=== PATIENT | female | born 1960 | race Caucasian/White ===

== ENCOUNTER 2017-05-24 20:58 | Observation (INO) ==
[2017-05-24] MEDS ORDERED: 0.9 % Sodium Chloride 1,000 ML IVC ONE ×2 (21:42→23:23)
[2017-05-24] MEDS ORDERED: Ondansetron 4 MG/2 ML VIAL IVP ONE (21:42)
[2017-05-24] MEDS ORDERED: Ipratropium/Albuterol Neb 3 ML IH ONE (21:46)
--- NOTE | 2017-05-24 21:51 | Emergency Department Note ---
START Narrative - START START: I examined this patient and my medical decision-making was reviewed with the Resident Physician. I agree with the documented findings, disposition and treatment plan as described except to the extent set forth below. 56yo F here to ER for second visit this week. c/o sob, fevers, not feeling well , dizziness. seen on sunday for similar but wasn't having as much sob and fever. workup at that time was negative. head ct was neg. labs ok. returns tonight with fever up to [address] and sob. will do CT chest today to eval for possible PE but will also give us any insight to any infection in the lungs. will check UA as well.
--- NOTE | 2017-05-24 21:54 | Emergency Department Note ---
Disposition Clinical Impression: UTI (urinary tract infection) Qualifiers: Urinary tract infection type: acute cystitis Hematuria presence: without hematuria Qualified Code(s): N30.00 - Acute cystitis without hematuria Sepsis Qualifiers: Sepsis type: sepsis due to unspecified organism Qualified Code(s): A41.9 - Sepsis, unspecified organism Disposition: Admitted As Inpatient Condition: Fair Time of Disposition: 23:34 General Adult HPI - General Chief complaint: ED Shortness of Breath/Dyspnea Stated complaint: freddy Source: patient Limitations: no limitations Nursing Notes Reviewed: Yes Vital Signs Reviewed: Yes - History of Present Illness HPI Narrative: 56-year-old female who presents to the emergency department with complaint of ongoing dizziness for the past 3 days on standing. Patient states that she also feels short of breath when she stands up. Patient does report increased urinary frequency, but denies urgency and dysuria. Patient states that she is very concerned as she does not feel well. Pain Scale: 0 - Related Data Home Medications Medication Instructions Recorded Confirmed No Known Home Drugs 05/24/17 05/24/17 Allergies Allergy/AdvReac Type Severity Reaction Status Date / Time No Known Allergies Allergy Verified 05/24/17 21:16 All systems ED: reviewed and negative except as stated. Review of Systems: As Per HPI Constitutional: Reports: fever, chills Eyes: Denies: eye pain ENT ED: Denies: ear pain, throat pain Cardiovascular: Denies: chest pain, palpitations Respiratory: Denies: cough, dyspnea, wheezes Gastrointestinal: Reports: nausea. Denies: abdominal pain, vomiting Genitourinary: Reports: frequency. Denies: urgency, dysuria Musculoskeletal: Denies: back pain, neck pain Integumentary: Denies: rash, abrasion Neurological: Reports: vertigo. Denies: headache Endocrine: Reports: fatigue Past Medical History - Past Medical History Medical history: Reports: cancer, thyroid disease, other Psychiatric history: Reports: no psych history - Social History Smoking Status: Former smoker Smokeless Tobacco Status: No Alcohol use: Reports: none Drug use: Reports: none Physical Exam General: Well Appearing, in no acute distress Head: autraumatic, EOMI, no conjuncitval pallor, no scleral icterus, Mouth: oral mucous membranes moist Neck: neck soft, trachea midline, no meningismus Chest:: Equal chest wall rise Lungs: Mild diffuse wheezes, no respiratory distress Heart: normal heart sounds, normal rate and rhythm, Abdomen: soft, non-tender, no rigidity, no guarding, no rebdound tenderness Lower Extremities: no pedal edema, calves non-tender Integumentary: Skin warm, dry, and intact, no rashes Neuro: Alert Psych: flat affect, normal mood Back: No CVA tenderness - General Limitations: no limitations General appearance: alert Course Course Narrative: 48-year-old female presents to the emergency department with presyncope and shortness of breath. Patient does have distant history of malignancy, and she has been bedridden for the last 3 weeks. We are obtaining an EKG, troponin, BNP , CTA of the chest to rule out PE. We are also obtaining a urinalysis. Patient initially was febrile but not tachycardic. Patient was given 3 duo nebs as she has some wheezes on her lung exam. She was also provided a gram of Tylenol for fever. She was administered 1 L normal saline. Patient had a new leukocytosis of 13.9 which had doubled from a CBC that was obtained a few days ago. Patient at that time met sepsis criteria. We obtained blood cultures, a lactate. We then gave the patient another liter of fluids here in the emergency department. Patient remained febrile and started developing Rigors. Urinalysis revealed an infection. We gave the patient a gram of rocephin here in the emergency department. We also gave the patient Toradol as a repeat temperature was 101. Patient was admitted to the hospital as she met sepsis criteria with her urinary tract infection, fever, new leukocytosis. Hospital agreed to accept admission. Patient is hemodynamically stable at time of discharge. Vital Signs Temperature 101.7 F H 05/24/17 21:16 Pulse Rate 88 05/24/17 21:16 Respiratory Rate 22 05/24/17 21:16 Blood Pressure 122/75 05/24/17 21:16 O2 Sat by Pulse Oximetry 95 05/24/17 21:16 Temperature 101 F H 05/25/17 00:10 Pulse Rate 90 05/24/17 23:40 Respiratory Rate 18 05/24/17 23:40 Blood Pressure 143/66 05/24/17 22:52 O2 Sat by Pulse Oximetry 95 05/24/17 23:40 Oxygen Delivery Oxygen Delivery Room Air Chest CTA 05/24/17 21:45 IMPRESSION: No findings to suggest pulmonary embolus. No acute abnormality. D/ / Saulo Nance / Saulo Nance Interpreting Provider: Saulo Nance Vital Signs Temperature 101.7 F H 05/24/17 21:16 Pulse Rate 88 05/24/17 21:16 Respiratory Rate 22 05/24/17 21:16 Blood Pressure 122/75 05/24/17 21:16 O2 Sat by Pulse Oximetry 95 05/24/17 21:16 Temperature 101 F H 05/25/17 00:10 Pulse Rate 90 05/24/17 23:40 Respiratory Rate 18 05/24/17 23:40 Blood Pressure 143/66 05/24/17 22:52 O2 Sat by Pulse Oximetry 95 05/24/17 23:40 Oxygen Delivery Oxygen Delivery Room Air Medical Decision Making - Medical Records Medical records reviewed: Yes I reviewed the patient's medical records. - Lab Data Lab results reviewed: Yes I reviewed the patient's lab results. Result diagrams: 05/24/17 22:25 05/24/17 22:25 Lab Results 05/24/17 05/24/17 05/24/17 Range/Units 21:49 22:25 22:25 WBC 13.9 H D (4.3-11.1) K/mcL RBC 4.99 H (3.82-4.97) M/mcL Hgb 14.1 (11.5-15.4) g/dL Hct 43.8 (35.3-44.9) % MCV 87.8 (83.0-100.0) fL MCH 28.3 (28.0-33.3) pg MCHC 32.2 (31.6-35.5) g/dL RDW 14.2 (11.5-14.5) % Plt Count 383 (140-400) K/mcL MPV 9.2 L (9.4-12.4) fL Immature Gran % 0.5 (0-4) % Seg Neutrophils % 20.3 % Lymphocytes % 74.8 % Monocytes % 2.9 % Eosinophils % 0.2 % Basophils % 1.3 % Neutrophils # 2.8 (1.6-8.9) K/mcL Lymphocytes # 10.4 H (0.6-4.6) K/mcL Monocytes # 0.4 (0.0-1.3) K/mcL Eosinophils # 0.0 (0.0-0.6) K/mcL Basophils # 0.2 (0.0-0.2) K/mcL Nucleated RBCs/100 WBC 0.1 H (0) /100 WBC Sodium 138 (136-145) mEq/L Potassium 3.4 L (3.5-4.5) mEq/L Chloride 103 (98-109) mEq/L Carbon Dioxide 26 (19-29) mEq/L BUN 13 (7-20) mg/dL Creatinine 0.81 (0.57-1.11) mg/dL Est GFR ( Amer) > 60 (> 60) Est GFR (Non-Af Amer) > 60 (> 60) BUN/Creatinine Ratio 16 (6-26) Glucose 121 H (70-99) mg/dL Calculated Osmolality 287 (280-300) Calcium 9.0 (8.6-10.8) mg/dL Total Bilirubin 0.4 (0.2-1.2) mg/dL AST 60 H (5-34) Units/L ALT 56 H (0-55) Units/L Alkaline Phosphatase 86 (38-126) Units/L Troponin I (0-0.03) ng/mL B-Natriuretic Peptide (0-100) pg/mL Serum Total Protein 7.0 (6.0-8.3) g/dL Albumin 3.1 L (3.5-5.0) g/dL Globulin 3.9 H (2.4-3.5) g/dL Albumin/Globulin Ratio 0.8 L (1.1-2.2) TSH 2.979 (0.350-4.840) mcIU/mL Urine Color Dark Yellow (Yellow) Urine Clarity Cloudy A (Clear) Urine pH 6.0 (5.0-8.0) pH Units Ur Specific [place] > 1.030 H (1.010-1.025) Urine Protein 30 H (Neg-Trace) mg/dL Urine Glucose (UA) Normal (Normal) mg/dL Urine Ketones Trace H (Negative) mg/dL Urine Blood Negative (Negative) Urine Nitrite Negative (Negative) Urine Bilirubin Small H (Negative) Urine Urobilinogen Normal (Normal) mg/dL Ur Leukocyte Esterase Moderate H (Negative) Urine Microscopic RBC 0-3 (0-3) per hpf Urine Microscopic WBC 50-100 H (0-3) per hpf Ur Squamous Epith Cells Many H (None-Few) per lpf Calcium Oxalate Crystal Present Urine Bacteria Moderate H (None-Few) per hpf Hyaline Casts None Seen (None-Few) per lpf Ur Culture Indicated? YES A (NO) 05/24/17 05/24/17 Range/Units 22:25 22:25 WBC (4.3-11.1) K/mcL RBC (3.82-4.97) M/mcL Hgb (11.5-15.4) g/dL Hct (35.3-44.9) % MCV (83.0-100.0) fL MCH (28.0-33.3) pg MCHC (31.6-35.5) g/dL RDW (11.5-14.5) % Plt Count (140-400) K/mcL MPV (9.4-12.4) fL Immature Gran % (0-4) % Seg Neutrophils % % Lymphocytes % % Monocytes % % Eosinophils % % Basophils % % Neutrophils # (1.6-8.9) K/mcL Lymphocytes # (0.6-4.6) K/mcL Monocytes # (0.0-1.3) K/mcL Eosinophils # (0.0-0.6) K/mcL Basophils # (0.0-0.2) K/mcL Nucleated RBCs/100 WBC (0) /100 WBC Sodium (136-145) mEq/L Potassium (3.5-4.5) mEq/L Chloride (98-109) mEq/L Carbon Dioxide (19-29) mEq/L BUN (7-20) mg/dL Creatinine (0.57-1.11) mg/dL Est GFR ( Amer) (> 60) Est GFR (Non-Af Amer) (> 60) BUN/Creatinine Ratio (6-26) Glucose (70-99) mg/dL Calculated Osmolality (280-300) Calcium (8.6-10.8) mg/dL Total Bilirubin (0.2-1.2) mg/dL AST (5-34) Units/L ALT (0-55) Units/L Alkaline Phosphatase (38-126) Units/L Troponin I 0.00 (0-0.03) ng/mL B-Natriuretic Peptide < 10 (0-100) pg/mL Serum Total Protein (6.0-8.3) g/dL Albumin (3.5-5.0) g/dL Globulin (2.4-3.5) g/dL Albumin/Globulin Ratio (1.1-2.2) TSH (0.350-4.840) mcIU/mL Urine Color (Yellow) Urine Clarity (Clear) Urine pH (5.0-8.0) pH Units Ur Specific [place] (1.010-1.025) Urine Protein (Neg-Trace) mg/dL Urine Glucose (UA) (Normal) mg/dL Urine Ketones (Negative) mg/dL Urine Blood (Negative) Urine Nitrite (Negative) Urine Bilirubin (Negative) Urine Urobilinogen (Normal) mg/dL Ur Leukocyte Esterase (Negative) Urine Microscopic RBC (0-3) per hpf Urine Microscopic WBC (0-3) per hpf Ur Squamous Epith Cells (None-Few) per lpf Calcium Oxalate Crystal Urine Bacteria (None-Few) per hpf Hyaline Casts (None-Few) per lpf Ur Culture Indicated? (NO) - Radiology Data Radiology results reviewed: Yes I reviewed the patient's radiology results. - EKG Data EKG #1 EKG attestation: Yes I reviewed and interpreted this EKG. EKG results narrative: 21:14 Ventricular rate 89 bpm, W[place] interval 149 ms, QRS duration 83 ms, QT 338 ms, QTC 385 ms, normal axis. Sinus with rhythm with a ventricular rate of 89 bpm. There are no evidence of an arrhythmia, Brugada syndrome, hypertrophic cardiomyopathy, Alexis-Parkinson- White syndrome. There are no acute ST change still be suggestive of ischemia. This is an EKG unchanged in comparison to the one performed on May [id number].
[2017-05-24 22:08] LABS: Bilirubin,Urine Small (Negative); Blood,Urine Negative (Negative); Clarity,Urine Cloudy (Clear); Color,Urine Dark Yellow (Yellow); Glucose,Urine (UA) Normal (Normal); Ketones,Urine Trace mg/dL (Negative); Leukocyte Esterase,Urine Moderate (Negative); Nitrite,Urine Negative (Negative); Protein,Urine 30 mg/dL (Neg-Trace); Specific Gravity,Urine > 1.030 (1.010-1.025); Urobilinogen,Urine Normal (Normal)
[2017-05-24 22:11] LABS: Bacteria,Urine Moderate per hpf (None-Few); Hyaline Casts,Urine None Seen per lpf (None-Few); RBC,Urine 0-3 per hpf (0-3); Squamous Epithelial Cell,Urine Many per lpf (None-Few); WBC,Urine 50-100 per hpf (0-3)
[2017-05-24 22:33] LABS: Calcium Oxalate Crystals,Urine Present
[2017-05-24 22:38] LABS: Basophils # 0.2 K/mcL (0.0-0.2); Basophils % 1.3 %; Eosinophils % 0.2 %; Hematocrit 43.8 % (35.3-44.9); Hemoglobin 14.1 g/dL (11.5-15.4); Immature Granulocytes % 0.5 % (0-4); Lymphocytes # 10.4 K/mcL (0.6-4.6); Lymphocytes % 74.8 %; Mean Corpuscular HGB Conc 32.2 g/dL (31.6-35.5); Mean Corpuscular Hemoglobin 28.3 pg (28.0-33.3); Mean Corpuscular Volume 87.8 fL (83.0-100.0); Mean Platelet Volume 9.2 fL (9.4-12.4); Monocytes # 0.4 K/mcL (0.0-1.3); Monocytes % 2.9 %; Neutrophils # 2.8 K/mcL (1.6-8.9); Nucleated Red Blood Cells 0.1 /100 WBC (0); Platelet Count 383 K/mcL (140-400); Red Blood Count 4.99 M/mcL (3.82-4.97); Red Cell Distribution Width 14.2 % (11.5-14.5); Segmented Neutrophils % 20.3 %
[2017-05-24 22:53] LABS: Alanine Aminotransferase 56 Units/L (0-55); Albumin 3.1 g/dL (3.5-5.0); Albumin/Globulin Ratio 0.8 (1.1-2.2); Alkaline Phosphatase 86 Units/L (38-126); Aspartate Amino Transferase 60 Units/L (5-34); BUN/Creatinine Ratio 16 (6-26); Bilirubin,Total 0.4 mg/dL (0.2-1.2); Blood Urea Nitrogen 13 mg/dL (7-20); Carbon Dioxide 26 mEq/L (19-29); Chloride 103 mEq/L (98-109); Globulin 3.9 g/dL (2.4-3.5); Glucose 121 mg/dL (70-99); Osmolality,Calculated 287 (280-300); Potassium 3.4 mEq/L (3.5-4.5); Sodium 138 mEq/L (136-145); eGFR For African Americans > 60 (> 60); eGFR For Non-African Americans > 60 (> 60)
[2017-05-24] MEDS ORDERED: Ketorolac 15 MG/ML VIAL IVP ONE (22:53)
[2017-05-24 23:42] LABS: Thyroid Stimulating Hormone 2.979 mcIU/mL (0.350-4.840)
[2017-05-25] MEDS ORDERED: Naloxone 0.4 MG/ML INJ IVP PRN (00:27)
[2017-05-25] MEDS ORDERED: Acetaminophen 325 MG TABLET PO PRN (00:27)
[2017-05-25] MEDS ORDERED: Potassium Chloride Elixir 20 MEQ/15 ML UDC PO ONE ×2 (00:30→08:14)
--- NOTE | 2017-05-25 01:12 | Internal Med History&Physical ---
<Jose L Benton - Last Filed: 05/25/17 03:48> Date of Encounter: 05/25/17 Time of Encounter: 01:00 Assessment and Plan (1) Sepsis Current visit: Yes Status: Acute Patient presented to the hospital with fever, leukocytosis, and elevated lactic acid. -Urinalysis revealed the presence of white blood cells and bacteria, therefore UTI is most likely source for patient's sepsis. -Patient was given ceftriaxone in the emergency department. -Continue antibiotics. -Blood cultures and urine cultures are pending. Qualifiers: Sepsis type: sepsis due to unspecified organism Qualified Code(s): A41.9 - Sepsis, unspecified organism (2) UTI (urinary tract infection) Current visit: Yes Status: Acute Urinalysis confirmed the presence of cloudy, dark yellow urine, with bacteria, red blood cells, and bilirubin. -White count is 13.9 and lactic acid is 2.3. -Continue antibiotics. -Blood urine cultures pending. Qualifiers: Urinary tract infection type: acute cystitis Hematuria presence: without hematuria Qualified Code(s): N30.00 - Acute cystitis without hematuria (3) Benign paroxysmal positional vertigo Current visit: No Status: Acute Qualifiers: Laterality: unspecified laterality Qualified Code(s): H81.10 - Benign paroxysmal vertigo, unspecified ear Internal Medicine - H&P: HPI Chief complaint: Shortness of breat, fever, dizziness Admitted From: Home History of present illness: Ms. Rider is a 56 year old female with past medical history of cancer and thyroid disease who comes in with chief complaint of shortness of breath, fever, malaise , dizziness, and increase in urinary frequency. Patient was seen on Sunday for similar complaints, although she did not have shortness of breath and fever at that time. Workup on Sunday was negative. Both head CT and labs were unremarkable. She returns to the hospital tonight with a fever of 101 and shortness of breath. Patient reported feeling short of breath when she stood up. Patient also reported an increase in urinary frequency, she however denies urgency and dysuria. Patient's labs reveal the presence of leukocytosis with a white count of 13.9 and elevated temperature of 101 degrees Fahrenheit. She currently denies having any pain, vomiting, nausea, or GI distress. Past Med Surg Social Fam HX - Past Medical History Medical history: cancer, thyroid disease, other Psychiatric history: no psych history - Social History Smoking Status: Former smoker Smokeless Tobacco Status: No Alcohol use: none Drug use: none Internal Medicine - H&P: Meds No Known Home Drugs 05/24/17 [History] 3 Allergy/AdvReac Type Severity Reaction Status Date / Time No Known Allergies Allergy Verified 05/24/17 21:16 All Systems PM: A 10-system review of systems was performed and is negative for pertinent findings except as documented above in the HPI. - Cardiovascular Cardiovascular ROS IM: no chest pain, no diaphoresis, no dyspnea, no lightheadedness, no palpitations, no syncope - Respiratory Respiratory: no cough, no dyspnea, no wheezing, no excessive phlegm production - Gastrointestinal Gastrointestinal: no abdominal pain, no diarrhea, no hematemesis, no hematochezia, no melena, no nausea, no vomiting - Genitourinary Genitourinary: no change in urinary stream, no dysuria, no flank pain, no hematuria - Constitutional Vitals: Temp Pulse Resp BP Pulse Ox 98.7 F 76 18 119/61 95 05/25/17 00:59 05/25/17 00:59 05/25/17 00:59 05/25/17 00:59 05/25/17 00:59 General appearance: Present: A&O X 3, no acute distress, answers questions appropriately - Head Head exam: Present: atraumatic, normocephalic - Neck Neck exam general surgery: Present: supple, trachea midline. Absent: lymphadenopathy - Respiratory Respiratory exam: Present: CTAB. Absent: accessory muscle use, rales, rhonchi, wheezes - Cardiovascular Cardiovascular exam: Present: RRR, +S1, +S2. Absent: diastolic murmur, gallop, rubs, systolic murmur - GI/Abdominal GI/Abdominal exam: Present: normal bowel sounds, soft, no peritoneal signs. Absent: distended, tenderness - Extremities Exam Extremities exam: Absent: calf tenderness - Skin Skin exam: Present: dry, intact Internal Med - H&P Results - Labs CBC & Chem 7: 05/24/17 22:25 05/24/17 22:25 <Rl Linares - Last Filed: 05/25/17 03:55> Date of Encounter: 05/25/17 Assessment and Plan (1) Hypokalemia Current visit: Yes Status: Acute Potassium of 3.4 on presentation, will replace and follow BMP Internal Medicine - H&P: HPI History of present illness: Ms. Rider is a 56 year old female All Systems PM: A 10-system review of systems was performed and is negative for pertinent findings except as documented above in the HPI. - Constitutional Vitals: Temp Pulse Resp BP Pulse Ox 98.7 F 76 18 119/61 95 05/25/17 00:59 05/25/17 00:59 05/25/17 00:59 05/25/17 00:59 05/25/17 00:59 Internal Med - H&P Results - Labs CBC & Chem 7: 05/24/17 22:25 05/24/17 22:25 - Diagnostic Studies CT scan - chest Status: image reviewed by me - Attending Attestation I personally interviewed and examined this patient and my medical decision- making was reviewed with the Resident Physician. I agree with the documented findings, disposition and treatment plan as described except to the extent set forth below. Rl Linares MD, MPH Hospitalist
[2017-05-25 05:56] LABS: Hematocrit 37.3 % (35.3-44.9); Mean Corpuscular HGB Conc 32.2 g/dL (31.6-35.5); Mean Corpuscular Hemoglobin 28.2 pg (28.0-33.3); Mean Corpuscular Volume 87.6 fL (83.0-100.0); Mean Platelet Volume 9.5 fL (9.4-12.4); Platelet Count 333 K/mcL (140-400); Red Blood Count 4.26 M/mcL (3.82-4.97); Red Cell Distribution Width 14.1 % (11.5-14.5)
[2017-05-25 06:05] LABS: BUN/Creatinine Ratio 15 (6-26); Blood Urea Nitrogen 10 mg/dL (7-20); Calcium 7.8 mg/dL (8.6-10.8); Carbon Dioxide 23 mEq/L (19-29); Chloride 108 mEq/L (98-109); Glucose 106 mg/dL (70-99); Magnesium 1.8 mg/dL (1.6-2.6); Osmolality,Calculated 289 (280-300); Phosphorous 3.3 mg/dL (2.3-4.7); Potassium 3.3 mEq/L (3.5-4.5); Sodium 140 mEq/L (136-145); eGFR For African Americans > 60 (> 60); eGFR For Non-African Americans > 60 (> 60)
[2017-05-25] MEDS: *HR* Heparin 5,000 UNIT/ML VIAL SQ SCH ×3 (06:15→23:05)
--- NOTE | 2017-05-25 11:57 | Event Note ---
Date of Encounter: 05/25/17 Time of Encounter: 11:15 56-year-old female with no significant past medical history, admitted with generalized weakness, fatigue and intermittent dizziness. 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 Patient seen and examined at bedside. Reports feeling slightly better. No subjective fever, chills, cough, GI complaints. Chest-S1, S2 heard, regular rate and rhythm. Lungs are clear to auscultation. Abdomen soft and nontender. Noted to have a maximum temperature of 101.7 degrees since admission. Labs reviewed-improved leukocytosis, serum potassium 3.3, TSH normal. Urinalysis shows moderate leukocyte esterase, 50-100 WBC, many bacteria. CTA chest shows no acute abnormality Sepsis secondary to UTI-improved leukocytosis, fever and lactic acidosis. Continue IV Rocephin and follow up final urine and blood cultures. TSH noted to be within normal limits, no indication for levothyroxine at this time.
--- NOTE | 2017-05-25 19:05 | Electrocardiograph Report ---
[address] [address] Test Date: 2017-05-24 Pat Name: Tanvi Rider Department: 104 Room: 3A Gender: F [employer] Camera Operator: : [id number] Requested By: Manuel Conteh Order Number: [id number] Reading MD: Natividad Martínez Measurements Intervals [place] Rate: 89 P: 24 OK: 149 QRS: 41 QRSD: 83 T: 48 QT: 338 QTc: 385 Interpretive Statements SINUS RHYTHM Electronically Signed On 05-25-2017 19:04:19 EDT by Natividad Martínez
[2017-05-26 04:18] LABS: Hematocrit 40.4 % (35.3-44.9); Hemoglobin 12.9 g/dL (11.5-15.4); Mean Corpuscular HGB Conc 31.9 g/dL (31.6-35.5); Mean Corpuscular Hemoglobin 28.1 pg (28.0-33.3); Mean Platelet Volume 9.1 fL (9.4-12.4); Platelet Count 372 K/mcL (140-400); Red Blood Count 4.59 M/mcL (3.82-4.97); Red Cell Distribution Width 14.5 % (11.5-14.5)
[2017-05-26 04:33] LABS: BUN/Creatinine Ratio 11 (6-26); Blood Urea Nitrogen 7 mg/dL (7-20); Calcium 8.2 mg/dL (8.6-10.8); Carbon Dioxide 24 mEq/L (19-29); Chloride 108 mEq/L (98-109); Glucose 109 mg/dL (70-99); Magnesium 1.7 mg/dL (1.6-2.6); Osmolality,Calculated 283 (280-300); Potassium 4.1 mEq/L (3.5-4.5); Sodium 137 mEq/L (136-145); eGFR For African Americans > 60 (> 60); eGFR For Non-African Americans > 60 (> 60)
[2017-05-26 05:02] LABS: Lymphocytes # 7.5 K/mcL (0.6-4.6); Monocytes # 0.7 K/mcL (0.0-1.3); Neutrophils # 2.9 K/mcL (1.6-8.9); Platelet Estimate Normal (Normal); Reactive Lymphocytes Present (Not Present)
[2017-05-26] MEDS: *HR* Heparin 5,000 UNIT/ML VIAL SQ SCH ×3 (06:12→21:31)
--- NOTE | 2017-05-26 11:10 | Internal Med Progress Note ---
Date of Encounter: 05/26/17 Time of Encounter: 11:06 - Assessment and plan (1) UTI (urinary tract infection) Current Visit: Yes Status: Acute Assessment and plan: Given persistent fevers, will broaden abx coverage d/c ceftriaxone and start Zosyn Repeat UA and urine culture tylenol prn fever will repeat blood cultures if pt becomes febrile Blood cultures thus far preliminary shows no growth will continue to closely monitor Qualifiers: Urinary tract infection type: acute cystitis Hematuria presence: without hematuria Qualified Code(s): N30.00 - Acute cystitis without hematuria (2) Sepsis Current Visit: Yes Status: Resolved Qualifiers: Sepsis type: sepsis due to unspecified organism Qualified Code(s): A41.9 - Sepsis, unspecified organism (3) DVT prophylaxis Current Visit: Yes Status: Acute Assessment and plan: Heparin SQ - Subjective Interval history: Patient seen and examined at bedside. Resting in bed and reports of feeling weak. Noted to be febrile this morning with Tmax of 101.2. prior urine culture was not interpretable. Repeat UA and urine culture requested, will broaden IV abx. - Constitutional Vitals: Temp Pulse Resp BP Pulse Ox 98.2 F 83 16 106/72 95 05/26/17 11:05 05/26/17 11:05 05/26/17 11:05 05/26/17 11:05 05/26/17 11:05 General appearance: Present: A&O X 3, no acute distress, answers questions appropriately - Head Head exam: Present: atraumatic, normocephalic - Eye Eye exam: Present: conjuntiva pink, sclera anicteric - Respiratory Respiratory exam: Present: CTAB. Absent: respiratory distress, wheezes - Cardiovascular Cardiovascular exam: Present: RRR, +S1, +S2. Absent: diastolic murmur, gallop, rubs, systolic murmur - GI/Abdominal GI/Abdominal exam: Present: normal bowel sounds, soft, no peritoneal signs. Absent: distended, tenderness - Extremities Exam Extremities exam: Present: warm, radial pulses palpable and symmetrical. Absent : calf tenderness, cyanotic, pedal edema - Neurological Exam Neurological exam: Present: alert, oriented X3 - Psychiatric Psychiatric exam: Present: normal affect, normal mood Internal Medicine: Result - Labs CBC & Chem 7: 05/26/17 04:01 05/26/17 04:01 Labs: Short CBC 05/26/17 Range/Units 04:01 WBC 11.0 (4.3-11.1) K/mcL Hgb 12.9 (11.5-15.4) g/dL Hct 40.4 (35.3-44.9) % Plt Count 372 (140-400) K/mcL Neutrophils # 2.9 (1.6-8.9) K/mcL BMP 05/26/17 04:01 Sodium 137 Potassium 4.1 Chloride 108 Carbon Dioxide 24 BUN 7 Creatinine 0.64 Glucose 109 H Calcium 8.2 L Consult Discharge Plan - Plan Referrals: NONE,PCP [Primary Care Provider] -
[2017-05-26 12:01] LABS: Bilirubin,Urine Small (Negative); Blood,Urine Negative (Negative); Clarity,Urine Cloudy (Clear); Color,Urine Dark Yellow (Yellow); Glucose,Urine (UA) Normal (Normal); Ketones,Urine Trace mg/dL (Negative); Leukocyte Esterase,Urine Moderate (Negative); Nitrite,Urine Negative (Negative); PH,Urine 5.5 pH Units (5.0-8.0); Protein,Urine 30 mg/dL (Neg-Trace); Urobilinogen,Urine Normal (Normal)
[2017-05-26 12:04] LABS: Bacteria,Urine None Seen per hpf (None-Few); RBC,Urine 0-3 per hpf (0-3); Squamous Epithelial Cell,Urine Many per lpf (None-Few); WBC,Urine 50-100 per hpf (0-3)
[2017-05-26] MEDS: Piperacillin/Tazobactam 3.375 GM in D5% in Water (Mini-Bag+) 100 ML IVPB SCH ×2 (13:51→21:28)
[2017-05-27] MEDS: Piperacillin/Tazobactam 3.375 GM in D5% in Water (Mini-Bag+) 100 ML IVPB SCH ×3 (06:05→20:26)
[2017-05-27] MEDS: *HR* Heparin 5,000 UNIT/ML VIAL SQ SCH ×3 (06:06→20:27)
[2017-05-27 08:05] LABS: Hematocrit 38.6 % (35.3-44.9); Hemoglobin 12.5 g/dL (11.5-15.4); Mean Corpuscular HGB Conc 32.4 g/dL (31.6-35.5); Mean Corpuscular Hemoglobin 28.5 pg (28.0-33.3); Mean Corpuscular Volume 88.1 fL (83.0-100.0); Mean Platelet Volume 9.4 fL (9.4-12.4); Monocytes # 0.5 K/mcL (0.0-1.3); Platelet Count 392 K/mcL (140-400); Red Blood Count 4.38 M/mcL (3.82-4.97); Red Cell Distribution Width 14.7 % (11.5-14.5)
[2017-05-27 08:27] LABS: BUN/Creatinine Ratio 12 (6-26); Blood Urea Nitrogen 9 mg/dL (7-20); Carbon Dioxide 25 mEq/L (19-29); Chloride 107 mEq/L (98-109); Glucose 104 mg/dL (70-99); Magnesium 1.7 mg/dL (1.6-2.6); Osmolality,Calculated 287 (280-300); Phosphorous 3.3 mg/dL (2.3-4.7); Potassium 3.9 mEq/L (3.5-4.5); Sodium 139 mEq/L (136-145); eGFR For African Americans > 60 (> 60); eGFR For Non-African Americans > 60 (> 60)
[2017-05-27 09:10] LABS: Eosinophils # 0.2 K/mcL (0.0-0.6); Lymphocytes # 8.5 K/mcL (0.6-4.6); Neutrophils # 2.5 K/mcL (1.6-8.9)
[2017-05-27 09:13] LABS: Reactive Lymphocytes Present (Not Present)
--- NOTE | 2017-05-27 16:21 | Internal Med Progress Note ---
Date of Encounter: 05/27/17 Time of Encounter: 16:19 - Assessment and plan (1) UTI (urinary tract infection) Current Visit: Yes Status: Acute Assessment and plan: Noted to have low grade fever overnight but reports improvement will continue IV zosyn and if remains afebrile for 24 hours, likely d/c in am on PO abx repeat Urine culture showed no growth tylenol prn fever Blood cultures thus far preliminary shows no growth will continue to closely monitor Qualifiers: Urinary tract infection type: acute cystitis Hematuria presence: without hematuria Qualified Code(s): N30.00 - Acute cystitis without hematuria (2) Sepsis Current Visit: Yes Status: Resolved Qualifiers: Sepsis type: sepsis due to unspecified organism Qualified Code(s): A41.9 - Sepsis, unspecified organism (3) DVT prophylaxis Current Visit: Yes Status: Acute Assessment and plan: Heparin SQ - Subjective Interval history: Patient seen and examined at bedside. Reported to have low grade fever overnight Tmax of 99.8. Currently asymptomatic and reports of feeling better. will continue another day of IV Zosyn if remains afebrile, will d/c in am - Constitutional Vitals: Temp Pulse Resp BP Pulse Ox 98.3 F 81 14 108/66 95 05/27/17 14:32 05/27/17 14:32 05/27/17 14:32 05/27/17 14:32 05/27/17 14:32 General appearance: Present: A&O X 3, no acute distress, answers questions appropriately - Head Head exam: Present: atraumatic, normocephalic - Eye Eye exam: Present: normal appearance, conjuntiva pink, sclera anicteric - Respiratory Respiratory exam: Present: CTAB. Absent: accessory muscle use, rales, rhonchi, wheezes - Cardiovascular Cardiovascular exam: Present: RRR, +S1, +S2. Absent: diastolic murmur, gallop, rubs, systolic murmur - GI/Abdominal GI/Abdominal exam: Present: normal bowel sounds, soft, no peritoneal signs. Absent: distended, tenderness - Extremities Exam Extremities exam: Present: warm, radial pulses palpable and symmetrical. Absent : calf tenderness, cyanotic, pedal edema - Neurological Exam Neurological exam: Present: alert, oriented X3 - Psychiatric Psychiatric exam: Present: normal affect, normal mood Internal Medicine: Result - Labs CBC & Chem 7: 05/27/17 07:18 05/27/17 07:18 Labs: Short CBC 05/27/17 Range/Units 07:18 WBC 11.7 H (4.3-11.1) K/mcL Hgb 12.5 (11.5-15.4) g/dL Hct 38.6 (35.3-44.9) % Plt Count 392 (140-400) K/mcL Neutrophils # 2.5 (1.6-8.9) K/mcL BMP 05/27/17 07:18 Sodium 139 Potassium 3.9 Chloride 107 Carbon Dioxide 25 BUN 9 Creatinine 0.74 Glucose 104 H Calcium 8.0 L Consult Discharge Plan - Plan Referrals: NONE,PCP [Primary Care Provider] -
[2017-05-28 04:27] LABS: Hematocrit 39.3 % (35.3-44.9); Hemoglobin 12.5 g/dL (11.5-15.4); Mean Corpuscular HGB Conc 31.8 g/dL (31.6-35.5); Mean Corpuscular Hemoglobin 27.9 pg (28.0-33.3); Mean Corpuscular Volume 87.7 fL (83.0-100.0); Mean Platelet Volume 9.2 fL (9.4-12.4); Platelet Count 428 K/mcL (140-400); Red Blood Count 4.48 M/mcL (3.82-4.97); Red Cell Distribution Width 14.8 % (11.5-14.5)
[2017-05-28] MEDS: Piperacillin/Tazobactam 3.375 GM in D5% in Water (Mini-Bag+) 100 ML IVPB SCH ×3 (04:37→22:03)
[2017-05-28 04:41] LABS: BUN/Creatinine Ratio 13 (6-26); Blood Urea Nitrogen 9 mg/dL (7-20); Carbon Dioxide 24 mEq/L (19-29); Chloride 105 mEq/L (98-109); Glucose 101 mg/dL (70-99); Magnesium 1.9 mg/dL (1.6-2.6); Osmolality,Calculated 281 (280-300); Phosphorous 3.2 mg/dL (2.3-4.7); Sodium 136 mEq/L (136-145); eGFR For African Americans > 60 (> 60); eGFR For Non-African Americans > 60 (> 60)
[2017-05-28 04:49] LABS: Potassium 4.4 mEq/L (3.5-4.5)
[2017-05-28 05:27] LABS: Eosinophils # 0.1 K/mcL (0.0-0.6); Large Platelets Present (Not Present); Lymphocytes # 8.6 K/mcL (0.6-4.6); Monocytes # 0.7 K/mcL (0.0-1.3); Neutrophils # 4.7 K/mcL (1.6-8.9); Platelet Estimate Increased (Normal); Reactive Lymphocytes Present (Not Present)
[2017-05-28] MEDS: *HR* Heparin 5,000 UNIT/ML VIAL SQ SCH ×3 (07:33→22:07)
--- NOTE | 2017-05-28 17:00 | Internal Med Progress Note ---
Date of Encounter: 05/28/17 Time of Encounter: 16:58 - Assessment and plan (1) UTI (urinary tract infection) Current Visit: Yes Status: Acute Assessment and plan: Noted to have low grade fever overnight but reports improvement will continue IV zosyn and if remains afebrile for 24 hours, likely d/c in am on PO abx repeat Urine culture showed no growth tylenol prn fever Blood cultures thus far preliminary shows no growth will continue to closely monitor Qualifiers: Urinary tract infection type: acute cystitis Hematuria presence: without hematuria Qualified Code(s): N30.00 - Acute cystitis without hematuria (2) Sepsis Current Visit: Yes Status: Resolved Qualifiers: Sepsis type: sepsis due to unspecified organism Qualified Code(s): A41.9 - Sepsis, unspecified organism (3) DVT prophylaxis Current Visit: Yes Status: Acute Assessment and plan: Heparin SQ - Subjective Interval history: Patient seen and examined at bedside. Reports of feeling weak and concerned about her worsening WBC, reports of having fever of 99.5 overnight, concerned about having recurrent infection if she is discharged today will continue another day of IV Zosyn if remains afebrile, will d/c in am - Constitutional Vitals: Temp Pulse Resp BP Pulse Ox 99.0 F 77 18 109/71 96 05/28/17 16:02 05/28/17 16:02 05/28/17 16:02 05/28/17 16:02 05/28/17 16:02 General appearance: Present: A&O X 3, no acute distress, answers questions appropriately - Head Head exam: Present: atraumatic, normocephalic - Eye Eye exam: Present: conjuntiva pink, sclera anicteric - Respiratory Respiratory exam: Present: CTAB. Absent: accessory muscle use, rales, rhonchi, wheezes - Cardiovascular Cardiovascular exam: Present: RRR, +S1, +S2. Absent: diastolic murmur, gallop, rubs, systolic murmur - GI/Abdominal GI/Abdominal exam: Present: normal bowel sounds, soft, no peritoneal signs. Absent: distended, tenderness - Extremities Exam Extremities exam: Present: warm, radial pulses palpable and symmetrical. Absent : calf tenderness, cyanotic, pedal edema - Neurological Exam Neurological exam: Present: alert, oriented X3 Internal Medicine: Result - Labs CBC & Chem 7: 05/28/17 03:57 05/28/17 03:57 Labs: Short CBC 05/28/17 Range/Units 03:57 WBC 14.1 H (4.3-11.1) K/mcL Hgb 12.5 (11.5-15.4) g/dL Hct 39.3 (35.3-44.9) % Plt Count 428 H (140-400) K/mcL Neutrophils # 4.7 (1.6-8.9) K/mcL BMP 05/28/17 03:57 Sodium 136 Potassium 4.4 Chloride 105 Carbon Dioxide 24 BUN 9 Creatinine 0.67 Glucose 101 H Calcium 8.0 L Consult Discharge Plan - Plan Referrals: NONE,PCP [Primary Care Provider] -
[2017-05-29 03:24] LABS: Basophils # 0.2 K/mcL (0.0-0.2); Basophils % 1.5 %; Eosinophils # 0.1 K/mcL (0.0-0.6); Eosinophils % 0.9 %; Hemoglobin 12.6 g/dL (11.5-15.4); Immature Granulocytes % 0.7 % (0-4); Lymphocytes # 10.3 K/mcL (0.6-4.6); Lymphocytes % 74.9 %; Mean Corpuscular HGB Conc 32.3 g/dL (31.6-35.5); Mean Corpuscular Hemoglobin 28.4 pg (28.0-33.3); Mean Platelet Volume 9.1 fL (9.4-12.4); Monocytes # 0.5 K/mcL (0.0-1.3); Monocytes % 3.9 %; Neutrophils # 2.5 K/mcL (1.6-8.9); Platelet Count 419 K/mcL (140-400); Red Blood Count 4.43 M/mcL (3.82-4.97); Red Cell Distribution Width 14.8 % (11.5-14.5); Segmented Neutrophils % 18.1 %
[2017-05-29 03:58] LABS: BUN/Creatinine Ratio 10 (6-26); Blood Urea Nitrogen 7 mg/dL (7-20); Calcium 8.1 mg/dL (8.6-10.8); Carbon Dioxide 25 mEq/L (19-29); Chloride 103 mEq/L (98-109); Glucose 110 mg/dL (70-99); Magnesium 1.9 mg/dL (1.6-2.6); Osmolality,Calculated 279 (280-300); Phosphorous 3.1 mg/dL (2.3-4.7); Potassium 4.3 mEq/L (3.5-4.5); Sodium 135 mEq/L (136-145); eGFR For African Americans > 60 (> 60); eGFR For Non-African Americans > 60 (> 60)
[2017-05-29] MEDS: Piperacillin/Tazobactam 3.375 GM in D5% in Water (Mini-Bag+) 100 ML IVPB SCH (05:14)
[2017-05-29] MEDS: *HR* Heparin 5,000 UNIT/ML VIAL SQ SCH (05:16)
[2017-05-29 07:34] VITALS: BP 123/72
--- NOTE | 2017-05-29 10:08 | Discharge Summary ---
Date of Encounter: 05/29/17 Time of Encounter: 10:04 - Discharge Diagnosis (1) Sepsis Priority: Primary Status: Resolved Qualifiers: Sepsis type: sepsis due to unspecified organism Qualified Code(s): A41.9 - Sepsis, unspecified organism (2) UTI (urinary tract infection) Priority: Primary Status: Acute Qualifiers: Urinary tract infection type: acute cystitis Hematuria presence: without hematuria Qualified Code(s): N30.00 - Acute cystitis without hematuria (3) Hypokalemia Priority: Primary Status: Acute - Discharge Medications Prescriptions: Ondansetron ODT [Zofran ODT] 4 mg SL Q6HR PRN #15 tab.rapdis PRN Reason: Nausea And Vomiting Amoxicillin/Clavulanate [Augmentin] 875 mg PO BIDWM 3 Days #6 tablet Omeprazole [PriLOSEC] 20 mg PO DAILY #15 cap Home Medications: Amoxicillin/Clavulanate [Augmentin] 875 mg PO BIDWM 3 Days #6 tablet 05/29/17 [ Rx] Omeprazole [PriLOSEC] 20 mg PO DAILY #15 cap 05/29/17 [Rx] Ondansetron ODT [Zofran ODT] 4 mg SL Q6HR PRN #15 tab.rapdis 05/29/17 [Rx] Allergies/Adverse Reactions: 3 Allergy/AdvReac Type Severity Reaction Status Date / Time No Known Allergies Allergy Verified 05/24/17 21:16 Date of admission: 05/24/17 23:46 Primary care physician: PCP NONE Consults: 05/25/17 00:30 Consult to Physical Therapy [CONS] Routine Comment: Evaluate, develop and implement POC Reason for Consult: pls assist with mgtglynn OT [Consult to Occupational Therapy] [CONS] Routine Comment: Evaluate, develop and implement POC Reason for Consult: pls assist with tglynn - Patient Status Disposition: Home, Self-Care Condition: Good Overall status at discharge: patient is back to baseline - Discharge Instructions Additional Instructions: Need to f/u with PCP in one week need to f/u with Heme Onc in 3-4 weeks - Diet and Activity Activity: increase activity as tolerated Diet: advance to your usual diet Hospital course: Ms. Rider is a 56 year old female with past medical history of cancer and thyroid disease who comes in with chief complaint of shortness of breath, fever, malaise , dizziness, and increase in urinary frequency. Patient was seen on Sunday for similar complaints, although she did not have shortness of breath and fever at that time. Workup on Sunday was negative. Both head CT and labs were unremarkable. She returns to the hospital tonight with a fever of 101 and shortness of breath. Patient reported feeling short of breath when she stood up. Patient also reported an increase in urinary frequency, she however denies urgency and dysuria. Patient's labs reveal the presence of leukocytosis with a white count of 13.9 and elevated temperature of 101 degrees Fahrenheit. Pt was admitted in the hospital and started her on empirical abx Zosyn. her UA was abnormal with possible UTI. Her CTA of chest did not show any consolidations. Her WBC still fluctuation, but no bandemia noticed. Her initial urine cx grew mixed marisela , but repeated UA and Urine cx are benign. Pt also stated she just moved to [facility], so will try to find a PCP for her here. She also has Cervical cancer 30 yrs ago with s/p partial hysterectomy , recommend to f/u with Heme Onc as an out pt. - Time Spent with Patient Total time spent providing and/or coordinating discharge services: - Constitutional Vitals: Temp Pulse Resp BP Pulse Ox 99.2 F 80 18 123/72 94 05/29/17 07:27 05/29/17 07:27 05/29/17 07:27 05/29/17 07:27 05/29/17 07:27 General appearance: Present: A&O X 3, no acute distress, answers questions appropriately - Head Head exam: Present: atraumatic, normal inspection - Neck Neck exam general surgery: Present: supple - Respiratory Respiratory exam: Present: CTAB. Absent: accessory muscle use, rales, rhonchi, wheezes - Cardiovascular Cardiovascular exam: Present: RRR, +S1, +S2. Absent: diastolic murmur, gallop, rubs, systolic murmur - GI/Abdominal GI/Abdominal exam: Present: soft. Absent: rebound, rigid, tenderness - Extremities Exam Extremities exam: Absent: calf tenderness, pedal edema, tenderness - Back Exam Back exam: Absent: CVA tenderness (L), CVA tenderness (R) - Neurological Exam Neurological exam: Present: alert, oriented X3
== END 2017-05-29 12:30 | disposition home or self-care (01) ==
LOC: EMEROO 20:58 → 3ANU 20:58 → SUATTDRO 23:46 → 3ANU 05-25 00:19
PROVIDERS: ADMIT Internal Medicine; ATTEND Family Medicine